=== PATIENT | male | born 1955 | race Caucasian/White ===

== ENCOUNTER → 2017-02-16 | Outpatient (CLI) | payer BC ==
--- NOTE | 2017-02-16 10:15 | US ---
"EXAMINATION TYPE: US kidneys/renal and bladder DATE OF EXAM: 02/16/2017 COMPARISON: NONE CLINICAL HISTORY: R31.0 GROSS HEMATURIA. Passing clots for a couple days, h/o renal stones 30 yrs ago EXAM MEASUREMENTS: Right Kidney: 10.3 x 4.6 x 5.2 cm Left Kidney: 10.4 x 4.4 x 6.5 cm Right Kidney: wnl Left Kidney: wnl Bladder: 3.9cm hyperechoic mass seen on the right dependant portion of bladder Bilateral Jets seen: no There is no evidence for hydronephrosis at this point in time. No nephrolithiasis is seen. No som s are identified. The urinary bladder is anechoic. Bilateral ureteral jets are seen. There is 2.2 x 3.9 cm oval wall based hyperechoic mass without significant vascularity in the deeper posterior wall of the bladder. IMPRESSION: Suspicious 3.9 x 2.2 cm bladder wall based lesion probable solid neoplasm in which urology follow-up and cystoscopy evaluation is advised. A Yellow message has been communicated to Poonam Denney MD via the [employer] | Critical Result s ystem on 02/16/2017 10:13 AM, Message ID [id number]."
== END | disposition home or self-care (01) ==
LOC: RADUSWWP 09:27
PROVIDERS: ATTEND Internal Medicine
DX: R31.0 Gross hematuria (principal)
CPT/HCPCS: 76770

== ENCOUNTER → 2019-07-27 | Outpatient (CLI) | payer BC ==
--- NOTE | 2019-07-27 17:01 | XR ---
EXAMINATION TYPE: XR IVP DATE OF EXAM: 07/27/2019 COMPARISON: NONE HISTORY: 64-year-old male gross hematuria 3 weeks ago. History of bladder cancer 2 years ago. TECHNIQUE: Following intravenous administration of 100 mL Isovue-300 IV contrast, multiple spot image s are obtained. FINDINGS: The preliminary film of the abdomen reveals nonobstructive bowel gas pattern. Vascular calcifications in the left side of the pelvis. Following intravenous administration of contrast material, sequential films of the abdomen were obtai [place]. There is prompt and symmetrical excretion of the contrast by both kidneys which demonstrate normal si ze and configuration. However, there is questionable rounded filling defect along the superior aspect of the left renal col lecting system measuring 2.0 cm. No abnormal filling defect within the right renal collecting system or right ureter. The majority of the left ureter is seen satisfactorily opacified. There is an elongated 7 x 3 mm calc ification in the left side of the pelvis that appears to be located along the expected course of the ureter. Opacification extends to the level of this calculus. There is a short 8mm long segment just d istal to this calcification that remains nonopacified and is not evaluated. There is gradual accumulation of contrast material in the urinary bladder showing no gross abnormalit y. The post-voiding film shows minimal residual contrast in the collecting systems and urinary bladd er. IMPRESSION: 1. An elongated 7 x 3 mm calcification in the left side of the pelvis could represent a vascular calc ification but is located along the course of the distal third left ureter. The possibility of a urete ral calculus is less likely as there is no hydronephrosis. Consider CT if indicated. 2. An 8 mm short segment of left ureter just beyond this calcification remains nonopacified and is no t assessed. A filling defect cannot be excluded here. Consider CT urogram. 3. A 2 cm rounded area of possible filling defect versus projectional artifact along the superior asp ect of the left renal collecting system. Again, consider CT urogram. 4. The bladder shows no gross abnormality.
== END | disposition home or self-care (01) ==
LOC: RADFLMAIN 08:35
PROVIDERS: ATTEND Urology
DX: N28.89 Other specified disorders of kidney and ureter (principal); D49.4 Neoplasm of unspecified behavior of bladder
CPT/HCPCS: 74400; Q9967